=== PATIENT | male | born 1970 | race African-American/Black ===

== ENCOUNTER 2023-01-03 16:56 | Emergency (ER) | payer OTHER ==
[~2023-01-03] VITALS: Ht 190.5 cm; Wt 95.3 kg
[2023-01-03 17:07] VITALS: BP_SYST 143
[2023-01-03 17:30] LABS: EOSINOPHILS # (AUTO) 0.1 K/uL (0.0-0.4); EOSINOPHILS % (AUTO) 2.2 % (0.0-4.0); HEMATOCRIT 43.6 % (36-54); HEMOGLOBIN 15.1 g/dL (14.0-18.0); LYMPHOCYTES # (AUTO) 1.4 K/uL (1.0-5.5); LYMPHOCYTES % (AUTO) 30.3 % (20.5-51.5); MEAN CORPUSCULAR HEMOGLOBIN 30 pg (27-31); MEAN CORPUSCULAR HGB CONC 35 % (32-36); MEAN CORPUSCULAR VOLUME 86 fL (79.0-98.0); MONOCYTES # (AUTO) 0.3 K/uL (0.0-1.0); MONOCYTES % (AUTO) 7.4 % (1.7-9.3); NEUTROPHILS # (AUTO) 2.7 K/uL (1.8-7.7); NEUTROPHILS % (AUTO) 59.1 % (40.0-70.0); PLATELET COUNT (AUTO) 239 K/uL (130-430); RED BLOOD CELL COUNT(AUTO) 5.05 MIL/uL (4.2-6.2); RED CELL DISTRIBUTION WIDTH 12.6 % (9.0-15.0); WHITE BLOOD COUNT (AUTO) 4.6 K/uL (4.8-10.8)
[2023-01-03 17:41] LABS: ALANINE AMINOTRANSFERASE 18 U/L (12-78); ALBUMIN 3.3 g/dL (3.4-4.8); ANION GAP 7 (5-15); ASPARTATE AMINOTRANSFERASE 12 U/L (10-37); CALCIUM 8.5 mg/dL (8.4-11.0); CHLORIDE 99 mmol/L (98-107); CREATININE 1.26 mg/dL (0.55-1.30); GFR AFRICAN AMERICAN 77 mL/min (>90); GLUCOSE 265 mg/dL (70-99); TOTAL BILIRUBIN 0.9 mg/dL (0.0-1.0); UREA NITROGEN, BLOOD 19 mg/dL (8-21)
[2023-01-03] MEDS ORDERED: ATEN50TA PO (17:58)
[2023-01-03] MEDS ORDERED: cloNIDine HCL 0.1 MG TABLET PO ONE ×2 (18:00→18:15)
[2023-01-03 18:53] VITALS: BP_SYST 143
== END 2023-01-03 18:59 | disposition home or self-care (01) ==
LOC: SED 16:56
DX: I47.1 Supraventricular tachycardia (principal); R06.02 Shortness of breath; E11.9 Type 2 diabetes mellitus without complications; I10 Essential (primary) hypertension; Z88.0 Allergy status to penicillin; Z79.899 Other long term (current) drug therapy
CPT/HCPCS: 36415; 71045; 80053; 84484; 85025; 93005; 99285

== ENCOUNTER 2023-05-27 18:46 | Emergency (ER) | payer OTHER ==
[~2023-05-27] VITALS: Ht 190.5 cm; Wt 99.8 kg
[~2023-05-27 18:46] MED LIST: ATEN50TA PO
[2023-05-27 18:48] VITALS: BP_SYST 143; PULSE 141; RESP 18; TEMP 96.6; O2SAT 98
[2023-05-27] MEDS ORDERED: LABETALOL HCL 20 MG/4 ML CARTRIDGE IVP ONE (19:15)
[2023-05-27] MEDS ORDERED: NACL 0.9% 1,000 ML IV ONE (19:15)
[2023-05-27 19:27] LABS: BASOPHILS % (AUTO) 0.7 % (0.0-2.0); EOSINOPHILS # (AUTO) 0.2 K/uL (0.0-0.4); EOSINOPHILS % (AUTO) 3.5 % (0.0-4.0); HEMOGLOBIN 15.9 g/dL (14.0-18.0); LYMPHOCYTES # (AUTO) 1.5 K/uL (1.0-5.5); LYMPHOCYTES % (AUTO) 28.8 % (20.5-51.5); MEAN CORPUSCULAR HEMOGLOBIN 29 pg (27-31); MEAN CORPUSCULAR HGB CONC 34 % (32-36); MEAN CORPUSCULAR VOLUME 87 fL (79.0-98.0); MONOCYTES # (AUTO) 0.3 K/uL (0.0-1.0); MONOCYTES % (AUTO) 6.7 % (1.7-9.3); NEUTROPHILS # (AUTO) 3.2 K/uL (1.8-7.7); NEUTROPHILS % (AUTO) 60.3 % (40.0-70.0); PLATELET COUNT (AUTO) 291 K/uL (130-430); RED BLOOD CELL COUNT(AUTO) 5.43 MIL/uL (4.2-6.2); RED CELL DISTRIBUTION WIDTH 13.6 % (9.0-15.0); WHITE BLOOD COUNT (AUTO) 5.2 K/uL (4.8-10.8)
[2023-05-27 19:34] LABS: ANION GAP 4 (5-15); CALCIUM 9.2 mg/dL (8.4-11.0); CARBON DIOXIDE 33 mmol/L (23-29); CHLORIDE 96 mmol/L (98-107); CREATININE 1.41 mg/dL (0.55-1.30); GFR AFRICAN AMERICAN 67 mL/min (>90); GLUCOSE 343 mg/dL (74-106); POTASSIUM 3.4 mmol/L (3.5-5.1); SODIUM SERUM 133 mmol/L (136-145); UREA NITROGEN, BLOOD 20 mg/dL (8-21)
[2023-05-27 19:37] LABS: GFR NON AFRICAN-AMERICAN 56 mL/min (>90)
[2023-05-27 19:38] LABS: PROTHROMBIN TIME 10.7 SECS (9.5-12.5)
[2023-05-27 19:41] LABS: ALANINE AMINOTRANSFERASE 49 U/L (12-78); ALBUMIN 4.2 g/dL (3.4-4.8); TOTAL BILIRUBIN 0.9 mg/dL (0.0-1.0); TOTAL PROTEIN, SERUM 8.3 g/dL (6.4-8.3)
[2023-05-27] MEDS ORDERED: dilTIAZem HCL IVP 5 MG/ML VIAL IVP ONE (19:45)
[2023-05-27 19:53] LABS: ASPARTATE AMINOTRANSFERASE 45 U/L (10-37)
[2023-05-27 21:34] VITALS: BP_SYST 134; PULSE 72; RESP 15; TEMP 97.7; O2SAT 96
== END 2023-05-27 21:24 | disposition home or self-care (01) ==
LOC: SED 18:46
DX: R06.02 Shortness of breath (principal); E11.9 Type 2 diabetes mellitus without complications; I10 Essential (primary) hypertension; Z88.0 Allergy status to penicillin; Z79.899 Other long term (current) drug therapy
CPT/HCPCS: 99285; 96374; 71045; 96361; 96375; 80053; 82962; 83880; 85025; 85610; 85730; 84484; 36415; 93005; J3490; J7030

== ENCOUNTER 2023-08-27 18:51 | Emergency (ER) | payer OTHER ==
[~2023-08-27] VITALS: Ht 190.5 cm; Wt 95.3 kg
[2023-08-27 19:17] VITALS: BP_SYST 117; PULSE 78; RESP 20; TEMP 99; O2SAT 97
[2023-08-27] MEDS ORDERED: CYCL10TA24 PO (21:19)
[2023-08-27] MEDS ORDERED: GABA-529 PO (21:19)
[2023-08-27 21:32] VITALS: BP_SYST 117; PULSE 78; RESP 20; TEMP 99; O2SAT 97
== END 2023-08-27 21:32 | disposition home or self-care (01) ==
LOC: SED 18:51
DX: G62.9 Polyneuropathy, unspecified (principal); M54.12 Radiculopathy, cervical region; R20.2 Paresthesia of skin; E11.9 Type 2 diabetes mellitus without complications; I10 Essential (primary) hypertension; Z88.0 Allergy status to penicillin; Z79.899 Other long term (current) drug therapy
CPT/HCPCS: 99283